=== PATIENT | male | born 1995 | race African-American/Black ===

== ENCOUNTER 2017-12-09 23:48 | Emergency (ER) | payer OTHER, MEDICAID ==
[~2017-12-09] VITALS: Ht 175.3 cm; Wt 63.6 kg
[2017-12-10 00:02] VITALS: Ht 175.3 cm; Wt 63.6 kg
[2017-12-10 01:51] VITALS: BP 133/84
== END 2017-12-10 01:44 | disposition home or self-care (01) ==
LOC: D.ER 23:48
DX: M79.672 Pain in left foot (principal); F17.200 Nicotine dependence, unspecified, uncomplicated